=== PATIENT | male | born 2000 | race Hispanic/Latino ===

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

== ENCOUNTER 2021-04-19 00:39 | Emergency (ER) | payer SELFPAY ==
--- OUTSIDE RECORDS SUMMARY | 2021-04-19 00:43 | XMS REPORT | Continuity of Care Document ---
:2000 Author Organization [facility] t Address [address] [place] [address] Care Team Providers Name Role Phone Washington Malone MD Attending Clinician Jair BETH Attending Clinician Alexandra BETH Attending Clinician Virgil GUERRIER Attending Clinician Problems This patient has no known problems. Allergies, Adverse Reactions, Alerts This patient has no known allergies or adverse reactions. Medications This patient has no known medications. Procedures This patient has no known procedures. Encounters Start End Encounter Admission Attending Care Care Encounter Source Date/Time Date/Time Type Type Clinicians Facility Department ID 2021-02-10 2021-02-10 Office CHOCO Malone [id number] 14:15:14 15:00:31 Visit Nguyen Delarosa AMBULATOR [id number] Y [id number] 2020-12-30 2020-12-30 Office Anais Adam [id number] 08:47:20 09:02:20 Visit AMBULATOR [id number] Y [id number] 2020-03-15 2020-03-15 Telephone CARLOS ALBERTO Morris [id number] 00:00:00 00:00:00 Anselmo Y [id number] [facility] [id number] [facility] [id number] BLDG. [id number] 2020-02-12 2020-02-12 Telephone CARLOS ALBERTO Herman [id number] 00:00:00 00:00:00 Bonifacio Villanueva [id number] [facility] [id number] [facility] [id number] BLDG. 144 Results This patient has no known results.
[2021-04-19 01:26] LABS: Urine Blood Negative (Negative); Urine Glucose Negative (Negative); Urine Protein 1+ (Negative); Urine Specific Gravity 1.025 (1.005-1.030); Urine pH 6.5 (5.0-7.0)
[2021-04-19 01:57] LABS: Urine Bacteria <20 /HPF (NONE SEEN); Urine RBC <5 /HPF (NONE SEEN)
--- NOTE | 2021-04-19 02:02 | ER ---
Nurse's Notes [facility] Name: Ramón Ashford Age: 20 yrs Sex: Male : 2000 Arrival Date: 04/19/2021 Time: 00:41 Bed Waiting Private MD: Diagnosis: Presentation: 04/19 01:02 Chief complaint: Patient states: Abdominal pain, nausea, vomiting, chest pain, diarrhea kg x 3 hours. Pt stated he was sleeping and the pain woke him up. Coronavirus screen: Client denies travel out of the [place] in the last 14 days. Client indicates they have traveled out of the [place] in the last 14 days. Client presents with at least one sign or symptom that may indicate coronavirus-19. Standard/surgical mask placed on the client. Provider contacted for isolation considerations. Ebola Screen: Patient negative for fever greater than or equal to 101.5 degrees Fahrenheit, and additional compatible Ebola Virus Disease symptoms Patient denies exposure to infectious person. Patient denies travel to an Ebola-affected area in the 21 days before illness onset. Initial Sepsis Screen: Does the patient meet any 2 criteria? No. Patient's initial sepsis screen is negative. Does the patient have a suspected source of infection? No. Patient's initial sepsis screen is negative. Risk Assessment: Do you want to hurt yourself or someone else? Patient reports no desire to harm self or others. Onset of symptoms was April 18, 2021 at 22:00. 01:02 Method Of Arrival: Ambulatory kg 01:02 Acuity: MOY 3 kg 02:01 Note notified by registration pt left the ED. bb Triage Assessment: 01:05 General: Appears in no apparent distress. Behavior is calm, cooperative, appropriate kg for age, quiet. Pain: Complains of pain in suprapubic area, right lower quadrant and left lower quadrant Pain currently is 10 out of 10 on a pain scale. at worst was 10 out of 10 on a pain scale. level that patient reports is acceptable is 5 out of 10 on a pain scale. Quality of pain is described as sharp. Cardiovascular: Reports chest pain, nausea. GI: Reports lower abdominal pain, diarrhea, vomiting. Historical: - Allergies: 01:05 No Known Allergies; kg - Home Meds: 01:05 None [Active]; kg - PMHx: 01:05 None; kg - PSHx: 01:05 None; kg - Immunization history:: Adult Immunizations not up to date, Client reports receiving the 1st dose of the Covid vaccine, April 05, 2021 [facility]. - Social history:: Smoking status: Patient denies any tobacco usage or history of. Patient uses alcohol, occasionally. Screenin:08 Abuse screen: Denies threats or abuse. Denies injuries from another. Nutritional kg screening: No deficits noted. Tuberculosis screening: No symptoms or risk factors identified. Fall Risk None identified. Vital Signs: 01:02 BP 129 / 67; Pulse 112; Resp 16; Temp 98.3; Pulse Ox 100% on R/A; Weight 68.04 kg; kg Height 5 ft. 10 in. (177.80 cm); Pain 10/10; 01:02 Body Mass Index 21.52 (68.04 kg, 177.80 cm) kg ED Course: 00:41 Patient arrived in ED. wm 01:05 Triage completed. kg 01:05 Arm band placed on left wrist. kg 01:08 Patient has correct armband on for positive identification. kg Administered Medications: No medications were administered Outcome: 02:01 Patient left the ED. bb Signatures: Jolly Guevara RN RN bb Brittany Weldon, RN RN kg Darlene Verdugo Corrections: (The following items were deleted from the chart) 01:05 01:05 Allergies: Aspirin; kg kg 01:28 01:16 CORONAVIRUS+MR.LAB.BRZ drawn and sent. kg EDMS 01:28 01:16 Influenza Screen (A \T\ B)+BA.LAB.BRZ drawn and sent. kg EDMS
[2021-04-19 02:07] VITALS: BP 129/67; TEMP 98.3; O2SAT 100
[2021-04-19 02:32] LABS: SARS-COV-2 RT PCR NEGATIVE (NEGATIVE)
== END 2021-04-19 02:01 | disposition left against medical advice (07) ==
LOC: ER 00:39
DX: Z53.21 Procedure and treatment not carried out due to patient leaving prior to being seen by health care provider (principal); Z20.822 Contact with and (suspected) exposure to COVID-19
CPT/HCPCS: 0240U; 81003; 81015; 99281